=== PATIENT | female | born 1985 | race Caucasian/White ===

== ENCOUNTER 2020-06-17 13:16 | Emergency (ER) | payer MEDICAID ==
[2020-06-17] MEDS ORDERED: Sodium Chloride 0.9% 10 ML Syringe FLUSH PRN (13:49)
[2020-06-17] MEDS ORDERED: Ketorolac 30 MG/ML SDV IVPUSH ONE (13:50)
[2020-06-17] MEDS ORDERED: Orphenadrine 100 MG Tab.ER PO ONE (13:50)
--- NOTE | 2020-06-17 13:56 | EDM.PDOC ---
ED HPI GENERAL MEDICAL PROBLEM - General Chief Complaint: Back Pain or Injury Stated Complaint: BACK PAIN Time Seen by Provider: 06/17/20 13:30 Source of Information: Reports: Patient, RN Notes Reviewed History Limitations: Reports: No Limitations - History of Present Illness INITIAL COMMENTS - FREE TEXT/NARRATIVE: Patient is a 35-year-old female who presents to the ED for her right lower back pain. The patient notes this has been present since Sunday. She does not note any trauma or injuries to her back that she can think of. She has no history of chronic back pain. She states that there feels like there is some swelling or a palpable lump on the right side of her lower back. She does complain of some left leg tingling, but she states she is also been laying more on that side due to the pain in her right back. She states that if she lays flat on her back this seems to aggravate the pain more, along with movement seems to make it worse. She has been using icy hot, Aspercreme with lidocaine, she states it takes the edge off but nothing seems to really make the pain better. She did have a telehealth visit yesterday from [facility], and was prescribed F lexeril, Medrol dose pack and she states that that does not seem to be helping much either. She denies any urination issues like dysuria, frequency or urgency, no incontinence of bowel or bladder, no saddle anesthesia. She states that she has had her tubes tied, so there is no chance of at this time. The patient's temperature is mildly increased at 99.3 F, her pulse is 116 bpm, respiratory rate of 20, O2 sats 100% on room air, and her blood pressure is 115/77. The patient also notes that they recently had to take their son to [facility] for a lesion removal near his cervical spine. Lower Back Pain Score (Numeric/FACES): 5 - Related Data Allergies Allergy/AdvReac Type Severity Reaction Status Date / Time No Known Allergies Allergy Verified 06/17/20 13:34 Home Meds: Home Meds Cyclobenzaprine [Flexeril] 10 mg PO TID PRN 06/17/20 [History] methylPREDNISolone [Medrol Dose Pack] 1 tab PO ASDIRECTED 06/17/20 [History] Past Medical History [employer] History: Reports: Spontaneous - Past Surgical History HEENT Surgical History: Reports: Myringotomy w Tube(s) Female Surgical History: Reports: Section, D&C, Tubal Ligation Social & Family History - Tobacco Use Tobacco Use Status *Q: Current Every Day Tobacco User Years of Tobacco use: 19 Packs/Tins Daily: 0.5 - Caffeine Use Caffeine Use: Reports: Soda, Tea - Recreational Drug Use Recreational Drug Use: No ED ROS GENERAL - Review of Systems Review Of Systems: Comprehensive ROS is negative, except as noted in HPI. ED EXAM,LOWER BACK PAIN/INJURY - Physical Exam Exam: See Below Exam Limited By: No Limitations General Appearance: Alert, WD/WN, No Apparent Distress (pt does appear to be in obvious pain, she is laying on left side and holding the bed rails trying to lay as stiff as possible.) Respiratory/Chest: No Respiratory Distress, Lungs Clear, Normal Breath Sounds, No Accessory Muscle Use, Chest Non-Tender Cardiovascular: Normal Peripheral Pulses, Regular Rate, Rhythm, No Edema, No Murmur GI/Abdominal: Normal Bowel Sounds, Soft, Non-Tender, No Distention, No Mass Back Exam: Normal Inspection, Other (there is an area at level of iliac crest on right side of spine that has a palpable tender lump that is roughly grape-prune size. Pt states that this is the area of the pain.) Extremities: Normal Inspection, Normal Capillary Refill Neurological: Alert, Normal Mood/Affect, No Motor/Sensory Deficits. No: Saddle Anesthesia Psychiatric: Normal Affect, Normal Mood Skin Exam: Warm, Dry, Intact, Normal Color, No Rash Course - Vital Signs Last Recorded V/S: Last Vital Signs Temp 99.3 F 06/17/20 13:33 Pulse 116 H 06/17/20 13:33 Resp 20 06/17/20 13:33 BP 115/77 06/17/20 13:33 Pulse Ox 100 06/17/20 13:33 - Orders/Labs/Meds Orders: Active Orders 24 hr Category Date Time Status Peripheral IV Care [RC] . DIRECTED Care 06/17/20 13:49 Active Lumbar Spine wo Cont [CT] Stat Exams 06/17/20 14:01 Taken CULTURE BLOOD [BC] Stat Lab 06/17/20 16:00 Ordered CULTURE BLOOD [BC] Stat Lab 06/17/20 16:00 Ordered Sodium Chloride 0.9% [Saline Flush] Med 06/17/20 13:49 Active 10 ml FLUSH ASDIRECTED PRN Blood Culture x2 Reflex Set [OM.PC] Stat Oth 06/17/20 16:00 Ordered Peripheral IV Insertion Adult [OM.PC] Routine Oth 06/17/20 13:49 Ordered Medication Orders Sodium Chloride (Saline Flush) 10 ml FLUSH ASDIRECTED PRN PRN Reason: Keep Vein Open Last Admin: 06/17/20 14:30 Dose: 10 ml Documented by: HUGO Labs: Laboratory Tests 06/17/20 06/17/20 06/17/20 Range/Units 14:32 14:32 16:15 WBC 15.02 H (3.98-10.04) K/mm3 RBC 4.28 (3.98-5.22) M/mm3 Hgb 12.9 (11.2-15.7) gm/dl Hct 36.3 (34.1-44.9) % MCV 84.8 (79.4-94.8) fl MCH 30.1 (25.6-32.2) pg MCHC 35.5 (32.2-35.5) g/dl RDW Std Deviation 37.9 (36.4-46.3) fL Plt Count 252 (182-369) K/mm3 MPV 10.1 (9.4-12.3) fl Neut % (Auto) 91.6 H (34.0-71.1) % Lymph % (Auto) 3.7 L (19.3-51.7) % [place] % (Auto) 4.6 L (4.7-12.5) % Eos % (Auto) 0 L (0.7-5.8) Baso % (Auto) 0.1 (0.1-1.2) % Neut # (Auto) 13.75 H (1.56-6.13) K/mm3 Lymph # (Auto) 0.56 L (1.18-3.74) K/mm3 [place] # (Auto) 0.69 H (0.24-0.36) K/mm3 Eos # (Auto) 0.00 L (0.04-0.36) K/mm3 Baso # (Auto) 0.02 (0.01-0.08) K/mm3 Sodium 131 L (136-145) mEq/L Potassium 3.7 (3.5-5.1) mEq/L Chloride 94 L (98-107) mEq/L Carbon Dioxide 27 (21-32) mEq/L Anion Gap 13.7 (5-15) BUN 18 (7-18) mg/dL Creatinine 1.0 (0.55-1.02) mg/dL Est Cr Clr Drug Dosing 79.96 mL/min Estimated GFR (MDRD) > 60 (>60) mL/min BUN/Creatinine Ratio 18.0 (14-18) Glucose 461 H (74-106) mg/dL Lactic Acid 1.0 (0.4-2.0) mmol/L Calcium 9.1 (8.5-10.1) mg/dL Total Bilirubin 0.5 (0.2-1.0) mg/dL AST 26 (15-37) U/L ALT 54 (14-59) U/L Alkaline Phosphatase 102 (46-116) U/L C-Reactive Protein 45.8 H* (<1.0) mg/dL Total Protein 7.4 (6.4-8.2) g/dl Albumin 2.7 L (3.4-5.0) g/dl Globulin 4.7 gm/dL Albumin/Globulin Ratio 0.6 L (1-2) Urine Color (Yellow) Urine Appearance (Clear) Urine pH (5.0-8.0) Ur Specific [place] (1.005-1.030) Urine Protein (Negative) Urine Glucose (UA) (Negative) Urine Ketones (Negative) Urine Occult Blood (Negative) Urine Nitrite (Negative) Urine Bilirubin (Negative) Urine Urobilinogen (0.2-1.0) Ur Leukocyte Esterase (Negative) Urine RBC (0-5) /hpf Urine WBC (0-5) /hpf Ur Squamous Epith Cells (0-5) /hpf Urine Bacteria (FEW) /hpf Urine Mucus (FEW) /hpf SARS-CoV-2 RNA (EMILY) (NEGATIVE) 06/17/20 06/17/20 Range/Units 16:47 16:47 WBC (3.98-10.04) K/mm3 RBC (3.98-5.22) M/mm3 Hgb (11.2-15.7) gm/dl Hct (34.1-44.9) % MCV (79.4-94.8) fl MCH (25.6-32.2) pg MCHC (32.2-35.5) g/dl RDW Std Deviation (36.4-46.3) fL Plt Count (182-369) K/mm3 MPV (9.4-12.3) fl Neut % (Auto) (34.0-71.1) % Lymph % (Auto) (19.3-51.7) % [place] % (Auto) (4.7-12.5) % Eos % (Auto) (0.7-5.8) Baso % (Auto) (0.1-1.2) % Neut # (Auto) (1.56-6.13) K/mm3 Lymph # (Auto) (1.18-3.74) K/mm3 [place] # (Auto) (0.24-0.36) K/mm3 Eos # (Auto) (0.04-0.36) K/mm3 Baso # (Auto) (0.01-0.08) K/mm3 Sodium (136-145) mEq/L Potassium (3.5-5.1) mEq/L Chloride (98-107) mEq/L Carbon Dioxide (21-32) mEq/L Anion Gap (5-15) BUN (7-18) mg/dL Creatinine (0.55-1.02) mg/dL Est Cr Clr Drug Dosing mL/min Estimated GFR (MDRD) (>60) mL/min BUN/Creatinine Ratio (14-18) Glucose (74-106) mg/dL Lactic Acid (0.4-2.0) mmol/L Calcium (8.5-10.1) mg/dL Total Bilirubin (0.2-1.0) mg/dL AST (15-37) U/L ALT (14-59) U/L Alkaline Phosphatase (46-116) U/L C-Reactive Protein (<1.0) mg/dL Total Protein (6.4-8.2) g/dl Albumin (3.4-5.0) g/dl Globulin gm/dL Albumin/Globulin Ratio (1-2) Urine Color Yellow (Yellow) Urine Appearance Clear (Clear) Urine pH 6.0 (5.0-8.0) Ur Specific [place] 1.010 (1.005-1.030) Urine Protein Negative (Negative) Urine Glucose (UA) 2+ H (Negative) Urine Ketones Trace H (Negative) Urine Occult Blood Negative (Negative) Urine Nitrite Negative (Negative) Urine Bilirubin Negative (Negative) Urine Urobilinogen 0.2 (0.2-1.0) Ur Leukocyte Esterase Negative (Negative) Urine RBC 0-5 (0-5) /hpf Urine WBC 0-5 (0-5) /hpf Ur Squamous Epith Cells 0-5 (0-5) /hpf Urine Bacteria Few (FEW) /hpf Urine Mucus Few (FEW) /hpf SARS-CoV-2 RNA (EMILY) Negative (NEGATIVE) Meds: Medications Generic Name Dose Route Start Last Admin Trade Name Freq PRN Reason Stop Dose Admin Sodium Chloride 10 ml 06/17/20 13:49 06/17/20 14:30 Saline Flush FLUSH 10 ml ASDIRECTED PRN Administration Keep Vein Open Discontinued Medications Generic Name Dose Route Start Last Admin Trade Name Freq PRN Reason Stop Dose Admin Hydromorphone HCl 0.5 mg 06/17/20 14:03 06/17/20 14:27 Dilaudid IVPUSH 06/17/20 14:04 0.5 mg ONETIME ONE Administration Hydromorphone HCl 0.5 mg 06/17/20 18:17 Dilaudid IVPUSH 06/17/20 18:18 ONETIME ONE Sodium Chloride 1,000 mls @ 999 mls/hr 06/17/20 16:10 06/17/20 16:46 Normal Saline IV 06/17/20 17:10 999 mls/hr ONETIME ONE Administration Ketorolac Tromethamine 30 mg 06/17/20 13:50 06/17/20 14:29 Toradol IVPUSH 06/17/20 13:51 30 mg ONETIME ONE Administration Orphenadrine Citrate 100 mg 06/17/20 13:50 06/17/20 14:29 Norflex PO 06/17/20 13:51 100 mg ONETIME ONE Administration - Re-Assessments/Exams Free Text/Narrative Re-Assessment/Exam: 06/17/20 13:55 Patient presents to the ED for evaluation of her ongoing back pain. There is a palpable mass on the right side of her spine, she states that is the source of her pain. She has a mild fever at time of triage, will get IV placed along with some Toradol, 0.5mg IV Dilaudid, Norflex, along with basic labs, and imaging of this area. 06/17/20 15:39 The patient's blood work has resulted, CBC is elevated at 15.02 with 91.6% neutrophils, metabolic panel is impressive for an elevated blood sugar at 461 and a mildly low sodium at 131. Patient CRP is markedly elevated at 45.8. Some of the lab abnormalities such as a blood sugar could be explained by the Medrol Dosepak, that she recently started. The patient's lumbar CT taken without contrast showed no acute findings. The soft tissues were reported as unremarkable. 06/17/20 16:10 Have discussed the findings with Dr. Leahy, he did evaluate the patient initially with me, and he is more concerned after the lab findings. Have ordered a set of blood cultures, UA, COVID-19 swab, and a lactic acid for further evaluation. I did talk with the patient at bedside, and she states that she does have an issue with elevated blood sugars and she has never had this worked up as well. She will also get some fluids in the meantime for further management. 06/17/20 18:04 The patient's lactic acid had come back at 1.0. UA is negative for infection. The COVID-19 screen was negative. Currently on the phone waiting to talk with the hospitalist at [facility] in [place]. I did talk with Dr. Ramsey, neurosurgeon and he thinks that the patient does need an MRI. He did not specify urgency of the MRI however. 06/17/20 18:[address]. Rivera, the hospitalist at [facility]. He does agree to the transfer at this time. Departure - Departure Time of Disposition: 18:11 Disposition: Home, Self-Care 01 Condition: Good Clinical Impression: Elevated C-reactive protein (CRP), Discitis of lumbar region - Discharge Information *PRESCRIPTION DRUG MONITORING PROGRAM REVIEWED*: No *COPY OF PRESCRIPTION DRUG MONITORING REPORT IN PATIENT JER: No Referrals: PCP,None [Primary Care Provider] - Forms: ED Department Discharge Sepsis Event Note (ED) - Evaluation Sepsis Screening Result: No Definite Risk - Focused Exam Vital Signs: Vital Signs Temp Pulse Resp BP Pulse Ox 06/17/20 13:33 99.3 F 116 H 20 115/77 100 - My Orders Last 24 Hours: My Active Orders 06/17/20 13:49 Peripheral IV Care [RC] . DIRECTED Sodium Chloride 0.9% [Saline Flush] 10 ml FLUSH ASDIRECTED PRN Peripheral IV Insertion Adult [OM.PC] Routine 06/17/20 14:01 Lumbar Spine wo Cont [CT] Stat 06/17/20 16:00 CULTURE BLOOD [BC] Stat CULTURE BLOOD [BC] Stat Blood Culture x2 Reflex Set [OM.PC] Stat - Assessment/Plan Last 24 Hours: My Active Orders 06/17/20 13:49 Peripheral IV Care [RC] . DIRECTED Sodium Chloride 0.9% [Saline Flush] 10 ml FLUSH ASDIRECTED PRN Peripheral IV Insertion Adult [OM.PC] Routine 06/17/20 14:01 Lumbar Spine wo Cont [CT] Stat 06/17/20 16:00 CULTURE BLOOD [BC] Stat CULTURE BLOOD [BC] Stat Blood Culture x2 Reflex Set [OM.PC] Stat
[2020-06-17] MEDS ORDERED: HYDROmorphone 0.5 MG/0.5 ML Syringe IVPUSH ONE ×2 (14:03→18:17)
[2020-06-17] MEDS ORDERED: Sodium Chloride 0.9% 1,000 ML IV ONE (16:10)
--- NOTE | 2020-06-21 09:33 | CT ---
PROCEDURE INFORMATION: Exam: CT Lumbar Spine Without Contrast Exam date and time: 06/17/2020 2:16 PM Age: 35 years old Clinical indication: Pain; Other: Lump on right lower spine TECHNIQUE: Imaging protocol: Computed tomography images of the lumbar spine without contrast. Radiation optimization: All CT scans at this facility use at least one of these dose optimization techniques: automated exposure control; mA and/or kV adjustment per patient size (includes targeted exams where dose is matched to clinical indication); or iterative reconstruction. COMPARISON: No relevant prior studies available. FINDINGS: Vertebrae: No acute fracture. Normal alignment. Discs/Spinal canal/Neural foramina: No significant disc protrusion. No severe spinal canal stenosis. No significant neural foraminal narrowing. Soft tissues: Unremarkable. IMPRESSION: No acute findings. Thank you for allowing us to participate in the care of your patient. Dictated and Authenticated by: Emmanuel Sanchez DO 06/17/2020 4:15 PM Central Time ([place] & [place]) [facility]
== END 2020-06-17 18:35 | disposition home or self-care (01) ==
LOC: JD.ED 13:16
DX: M46.46 Discitis, unspecified, lumbar region (principal); R79.89 Other specified abnormal findings of blood chemistry; F17.210 Nicotine dependence, cigarettes, uncomplicated; Z20.828 Contact with and (suspected) exposure to other viral communicable diseases
CPT/HCPCS: 36415; 72131; 80053; 81001; 83605; 85025; 86140; 87040; 87635; 96374; 96375; 96376; 99284; A9270; J1170; J1885; J7030; 87077; 87186; U0002